=== PATIENT | male | born 1995 | race Two or more races ===

== ENCOUNTER 2025-06-06 05:45 | Emergency (ER) | payer MEDICAID ==
[~2025-06-06] VITALS: Ht 172.7 cm; Wt 68.0 kg
[2025-06-06 06:23] LABS: PLATELET COUNT (AUTO) 224 K/uL (150-450); RED BLOOD CELL COUNT(AUTO) 5.01 MIL/uL (4.5-6.0); RED CELL DISTRIBUTION WIDTH 13.6 % (11.5-15.0); WHITE BLOOD COUNT (AUTO) 9.3 K/uL (4.3-11.0)
[2025-06-06] MEDS ORDERED: TDAP [DIPH/PERTUSSIS/TET] 0.5 ML VIAL IM ONE (06:26)
[2025-06-06] MEDS: IV NS 0.9% 500 ML BAG IV ONE (06:30)
[2025-06-06 06:31] LABS: CALCIUM, SERUM 8.7 mg/dL (8.5-10.1); CREATININE 0.9 mg/dL (0.6-1.3); SODIUM SERUM 143.0 mmol/L (136-145); UREA NITROGEN, BLOOD 18.0 mg/dL (7-18)
[2025-06-06] MEDS: TDAP [DIPH/PERTUSSIS/TET] 0.5 ML VIAL IM ONE (06:31)
[2025-06-06 06:38] LABS: ALCOHOL, BLOOD 147.0 mg/dL (0-10)
[2025-06-06] MEDS ORDERED: IOHEXOL-300 100 ML VIAL IV ONE (07:00)
[2025-06-06] MEDS ORDERED: IV NS 0.9% 250 ML IV ONE (07:00)
[2025-06-06 08:06] LABS: AMPHETAMINE, URINE NEGATIVE (NEGATIVE); BARBITURATE, URINE NEGATIVE (NEGATIVE); BENZODIAZEPINE, URINE NEGATIVE (NEGATIVE); CANNABINOID, URINE NEGATIVE (NEGATIVE); COCCAINE, URINE NEGATIVE (NEGATIVE); OPIATE, URINE NEGATIVE (NEGATIVE)
[2025-06-06 08:36] VITALS: BP 126/70; TEMP 98; O2SAT 98
== END 2025-06-06 08:37 | disposition home or self-care (01) ==
LOC: ER 05:50
DX: S00.83XA Contusion of other part of head, initial encounter (principal); S00.31XA Abrasion of nose, initial encounter; F10.129 Alcohol abuse with intoxication, unspecified; R07.9 Chest pain, unspecified; V43.52XA Car driver injured in collision with other type car in traffic accident, initial encounter; Y93.89 Activity, other specified; Y92.488 Other paved roadways as the place of occurrence of the external cause; Y99.8 Other external cause status; Y90.6 Blood alcohol level of 120-199 mg/100 ml
CPT/HCPCS: 99285; 90471; 93005; 90715; 71260; 70450; 70486; 74177; 85025; 80048; 36415; 80320; 80307; J7050; J7040; Q9967; G0480